=== PATIENT | male | born 1975 | race Hispanic/Latino ===

== ENCOUNTER 2017-06-26 21:34 | Emergency (ER) | payer OTHER ==
[~2017-06-26] VITALS: Ht 185.4 cm; Wt 88.5 kg
[2017-06-26] MEDS ORDERED: TETANUS/DIPHTHERIA TOX ADULT 0.5 ML SYR IM ONE (22:00)
== END 2017-06-26 22:00 | disposition home or self-care (01) ==
LOC: FSED 21:34
DX: S61.216A Laceration without foreign body of right little finger without damage to nail, initial encounter (principal); W45.8XXA Other foreign body or object entering through skin, initial encounter; Y92.008 Other place in unspecified non-institutional (private) residence as the place of occurrence of the external cause
CPT/HCPCS: 90471; 90714; 99282